=== PATIENT | female | born 1955 | race Caucasian/White ===

== ENCOUNTER 2020-11-07 08:00 | Outpatient (CLI) | payer OTHER | END 2020-11-07 08:01 | disposition home or self-care (01) | LOC: BICMAMMO 08:00 | PROVIDERS: ATTEND Family Medicine | DX: Z12.31 Encounter for screening mammogram for malignant neoplasm of breast (principal); Z80.3 Family history of malignant neoplasm of breast | CPT/HCPCS: 77063; 77067 ==

== ENCOUNTER 2023-02-08 10:00 | Outpatient (CLI) | payer OTHER | END 2023-02-08 10:01 | disposition home or self-care (01) | LOC: BICRAD 10:00 | PROVIDERS: ATTEND Family Medicine | DX: J18.9 Pneumonia, unspecified organism (principal) | CPT/HCPCS: 71046 ==

== ENCOUNTER 2024-12-08 10:19 | Outpatient (CLI) | payer OTHER | END 2024-12-08 10:20 | disposition home or self-care (01) | LOC: BICRAD 10:19 | PROVIDERS: ATTEND Family Medicine | DX: R05.3 Chronic cough (principal) | CPT/HCPCS: 71046 ==